=== PATIENT | female | born 2000 | race Caucasian/White ===

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

== ENCOUNTER 2022-02-19 19:01 | Emergency (ER) | payer MEDICAID, SELFPAY ==
[2022-02-19 18:57] VITALS: BP 102/67; PULSE 72; RESP 18; TEMP 36.4; O2SAT 100
--- NOTE | 2022-02-19 19:00 | RT.EKG_ITS ---
APPROVED REPORT Exam: Resting ECG Reason for Exam: syncopy loc Patient Location: E HR:62 bpm ECG Measurements Heart Rate 62 AXIS WI 136 P 23 QRSd 79 QRS 79 QT 415 T 50 QTc 424 Conclusion Sinus rhythm...normal P axis, V-rate 60- 99
--- NOTE | 2022-02-19 19:51 | W.ED.GENAD ---
Discharge Plan Disposition Patient Disposition: HOME Condition: Improving Discharge Details Chief Complaint: AMS/LOC Clinical Impression: Syncope Primary Care Provider: Kelly Ly ED Provider: Oli Bowden Home Meds and New Rx's Prescriptions: No Action cetirizine 10 mg Tablet 10 mg PO DAILY PRN albuterol sulfate [ProAir HFA] 90 mcg/actuation Hfa Aerosol Inhaler 2 puff INHALATION PRN PRN epinephrine 0.3 mg/0.3 mL Syringe 0.3 mg SUBCUT DIRECTED Discharge Instructions Instructions: Syncope (ED) Additional Instructions: Please help with your primary care physician. Please return to the emergency department for any worsening symptoms. Medical Decision Making 21-year-old female presents after syncopal episode in the setting of attempting to vallejo her own septum with some friends this evening, after slightly pricking her septum, she stopped, felt lightheaded and had a syncopal episode witnessed. May have hit her head during syncope. No nausea no vomiting, returned to baseline; has slight frontal headache currently. Hemodynamically stable afebrile nontoxic. Alert and oriented cranial nerves intact 5 out of 5 strength upper and lower extremities, no ataxia, no external signs of trauma. Has complete abrasion to right nasal septum. Hemostatic no foreign body. Likely syncopal episode in the setting of pain related to vasovagal response. Low suspicion for intracranial injury. Low suspicion for primary cardiac etiology. Will obtain fingerstick, urine test, EKG. If normal patient be discharged home with care instructions. 21: 09 patient resting comfortably no acute distress alert and oriented. Tolerating p.o. Negative [id number] test. Relatively low blood glucose on arrival. Tolerated a snack. Feeling much better. Likely combination of vasovagal and relative hypoglycemia resulting in syncope. Strict home care instructions and return precautions given. Friend coming to pick her up. HPI General Date/Time Provider Initiated Documentation: 02/19/22 19:14. HPI Narrative: 21-year-old female presents after syncopal episode while attempting to vallejo her own septum with her friends. Dickens lightheaded after pricking her septum did not complete the piercing. Syncopal episode witnessed, may have hit her head during syncope. Feeling back to normal now. No chest pain or shortness of breath. Slight left frontal headache. No nausea or vomiting. Related Data Home Medications Medication Instructions Recorded Confirmed albuterol sulfate 90 mcg/actuation 2 puff inhalation PRN PRN 09/23/19 09/27/19 aerosol inhaler (ProAir HFA) cetirizine 10 mg tablet 10 mg PO DAILY PRN 09/23/19 09/27/19 epinephrine 0.3 mg/0.3 mL 0.3 mg subcut DIRECTED 09/23/19 09/27/19 injection syringe Allergies Allergy/AdvReac Type Severity Reaction Status Date / Time banana Allergy Severe Anaphylaxsi Verified 09/27/19 07:12 s animal dander Allergy Mild Verified 09/27/19 07:12 apple Allergy Mild Verified 09/27/19 07:12 grass pollen Allergy Mild Verified 09/27/19 07:12 pear Allergy Mild Verified 09/27/19 07:12 General Stated Complaint: AMS/LOC MARYCRUZ: 3 Review of Systems Narrative: Review of Systems Constitutional: negative Eyes: negative ENT: negative Cardiovascular: negative Respiratory: negative Gastrointestinal: negative : negative Musculoskeletal: negative Skin: negative Neurologic: Headache Psych: negative PFSH All Active Problems (Updated 02/19/22 @ 21:10 by Oli Bowden MD) Syncope (Chronic) Environmental allergies (Acute) Deviated nasal septum (Acute) Nasal obstruction (Acute) Nasal turbinate hypertrophy (Acute) Nasal valve stenosis (Acute) Chronic rhinitis (Acute) Medical History (Updated 02/19/22 @ 21:10 by Oli Bowden MD) Allergic rhinitis Asthma Atopic dermatitis Closed fracture of metatarsal bone Pain in right hip Surgical History Hx of toe surgery Social History Smoking/Tobacco Use Status: Never Smoking risk assessment performed?: Yes Alcohol Intake: never Drug use: Never Substance use type: does not use Do you feel safe at home: Yes Do you feel safe in your relationship?: Yes Exam Narrative Exam Narrative: Physical Examination General: alert, awake, cooperative, resting comfortably, no acute distress HEENT: Superficial abrasion to right nasal septum hemostatic;normocephalic, atraumatic; PERRL, EOM intact, conjunctiva normal; no nasal discharge; moist mucous membranes, oral and pharyngeal mucosa normal, tolerating secretions Neck: supple, trachea midline; full ROM Chest: normal to inspection Respiratory: normal respiratory effort, speaking in full sentences, clear to auscultation, no wheezing, rales or rhonchi Cardiac: regular rate, regular rhythm, S1S2 intact, no murmurs rubs or gallops GI: abdomen soft, non-tender, non-distended; no palpable mass or hepatosplenomegaly Skin: no lesions, rashes or trauma appreciated Neuro: AAOx3, normal speech, moving all extremities; cranial nerves II through XII intact, 5 out of 5 strength upper and lower extremities, no ataxia Full range of motion no signs of trauma Extremities: Psych: Appropriate mood and affect Course Vital Signs Vital signs: Vital Signs Temperature 36.4 C L 02/19/22 18:57 Pulse 72 02/19/22 18:57 Respiratory Rate 18 02/19/22 18:57 Blood Pressure 102/67 02/19/22 18:57 Pulse Oximetry 100 02/19/22 18:57 Temperature 36.4 C L 02/19/22 18:57 Temperature Source Tympanic 02/19/22 18:57 Pulse 72 02/19/22 18:57 Respiratory Rate 18 02/19/22 18:57 Respiratory Effort 02/19/22 19:03 Respiratory Depth Normal 02/19/22 19:03 Respiratory Pattern Normal 02/19/22 19:03 Blood Pressure 102/67 02/19/22 18:57 Blood Pressure Position Supine 02/19/22 18:57 Pulse Oximetry 100 02/19/22 18:57 Oxygen Delivery Method Room Air 02/19/22 18:57 Oxygen Flow Rate 0 02/19/22 18:57 Pain Level 4 02/19/22 18:57
== END 2022-02-19 21:41 | disposition home or self-care (01) ==
PROVIDERS: Emergency Provider Emergency Medicine; PCP Nurse Practitioner Family
DX: R55 Syncope and collapse (principal); R51.9 Headache, unspecified
CPT/HCPCS: 36416; 81025; 82962; 93005; 99283; 93010

== ENCOUNTER 2023-02-07 22:38 | Emergency (ER) | payer MEDICAID, SELFPAY ==
[2023-02-07 22:33] VITALS: BP 117/60; PULSE 80; RESP 18; TEMP 37.1; O2SAT 100
[2023-02-07 22:42] VITALS: BP 117/60; PULSE 70; RESP 18; TEMP 37.1; O2SAT 100
--- NOTE | 2023-02-07 22:58 | W.ED.GENAD ---
Discharge Plan Discharge Details Chief Complaint: GenMedical Clinical Impression: Toxic effect of ingested mushrooms Primary Care Provider: Unknown,Unknown ED Provider: Miguel Angel Painter Home Meds and New Rx's Prescriptions: No Action cetirizine 10 mg Tablet 10 mg PO DAILY PRN albuterol sulfate [ProAir HFA] 90 mcg/actuation Hfa Aerosol Inhaler 2 puff INHALATION PRN PRN epinephrine 0.3 mg/0.3 mL Syringe 0.3 mg SUBCUT DIRECTED Medical Decision Making 2299?22-year-old here with adverse effects of psychedelic mushrooms within 2 hours of smoking and ingestion. Patient has nausea, lightheadedness and shortness of breath. Patient believes they consumed too many mushrooms. Patient is hemodynamically stable. Plan to observe and reassess. 2344 --patient reassessed and speech improved. Tolerating oral intake. We will continue to observe. Lab Data Lab results reviewed: Yes I reviewed the patient's lab results. Labs: Laboratory Tests Range/Units 02/07/23 23:07 Urine Opiates Screen (Negative) Negative Urine Methadone Screen (Negative) Negative Ur Barbiturates Screen (Negative) Negative Ur Tricyclics Screen (Negative) Negative Ur Amphetamines Screen (Negative) Negative U Benzodiazepines Scrn (Negative) Negative Urine Cocaine Screen (Negative) Negative Ur THC Screen (Negative) Negative HPI General Mode of arrival: EMS. Date/Time Provider Initiated Documentation: 02/07/23 23:32. Limitations to Documentation: altered mental status. Information obtained by: patient. HPI Narrative: 22-year-old presents with chief complaint of altered mental status. Patient smoked and ingested psychedelic mushrooms with friends around 9 PM and developed nausea, lightheadedness and shortness of breath with altered mental status. Patient thinks it took more than they have used in the past and more than friends. No hallucinations at this time. Patient denies abdominal pain and chest pain. Related Data Home Medications Medication Instructions Recorded Confirmed albuterol sulfate 90 mcg/actuation 2 puff inhalation PRN PRN 09/23/19 09/27/19 aerosol inhaler (ProAir HFA) cetirizine 10 mg tablet 10 mg PO DAILY PRN 09/23/19 09/27/19 epinephrine 0.3 mg/0.3 mL 0.3 mg subcut DIRECTED 09/23/19 09/27/19 injection syringe Allergies Allergy/AdvReac Type Severity Reaction Status Date / Time banana Allergy Severe Anaphylaxsi Verified 09/27/19 07:12 s animal dander Allergy Mild Verified 09/27/19 07:12 apple Allergy Mild Verified 09/27/19 07:12 grass pollen Allergy Mild Verified 09/27/19 07:12 pear Allergy Mild Verified 09/27/19 07:12 General Stated Complaint: GenMedical MARYCRUZ: 3 Review of Systems All systems reviewed & are unremarkable except as noted in HPI and below Respiratory Respiratory: Reports as per HPI Gastrointestinal Gastrointestinal: Reports as per HPI PFS All Active Problems (Updated 02/07/23 @ 23:34 by Miguel Angel Painter MD) Toxic effect of ingested mushrooms (Acute) Environmental allergies (Acute) Deviated nasal septum (Acute) Nasal obstruction (Acute) Nasal turbinate hypertrophy (Acute) Nasal valve stenosis (Acute) Chronic rhinitis (Acute) Medical History Closed fracture of metatarsal bone Pain in right hip Atopic dermatitis Asthma Allergic rhinitis Surgical History Hx of toe surgery Social History Smoking/Tobacco Use Status: Never Smoking risk assessment performed?: Yes Alcohol Intake: never Drug use: Never Substance use type: does not use, marijuana and other Do you feel safe at home: Yes Do you feel safe in your relationship?: Yes Exam Const General: cooperative [facility] Head: normocephalic and atraumatic Mouth: moist mucous membranes Eyes Conjunctivae: normal conjunctivae Pupils: PERRL EOM: EOM intact bilaterally Resp Auscultation: clear to auscultation bilaterally, no rales, no rhonchi and no wheezes Cardio Rate: regular rate and not tachycardic Rhythm: regular rhythm GI Palpation: soft, not firm, no guarding, no masses, not rigid and nontender Skin General skin exam: no rashes or lesions noted Neuro General: patient alert, patient awake and tone normal Speech: abnormal speech other (delayed/broken intermittently ) Extrem General: no edema Psych Appearance: grossly normal Mental Status: mental status grossly normal Course Vital Signs Vital signs: Vital Signs Temperature 37.1 C 02/07/23 22:33 Pulse 80 02/07/23 22:33 Respiratory Rate 18 02/07/23 22:33 Blood Pressure 117/60 02/07/23 22:33 Pulse Oximetry 100 02/07/23 22:33 Temperature 37.1 C 02/07/23 22:42 Temperature Source Oral 02/07/23 22:42 Pulse 70 02/07/23 22:42 Respiratory Rate 18 02/07/23 22:42 Respiratory Effort Normal, Non-Labored 02/07/23 22:42 Respiratory Depth Normal 02/07/23 22:42 Respiratory Pattern Normal 02/07/23 22:42 Blood Pressure 117/60 02/07/23 22:42 Blood Pressure Position Supine 02/07/23 22:33 Pulse Oximetry 100 02/07/23 22:42 Oxygen Delivery Method Room Air 02/07/23 22:42 Oxygen Flow Rate 0 02/07/23 22:33 Pain Level 7 02/07/23 22:33
[2023-02-07 23:31] LABS: *AMPHETAMINES SCREEN URINE Negative (Negative); *BARBITURATES SCREEN URINE Negative (Negative); *BENZODIAZEPINES SCREEN URINE Negative (Negative); Cannabinoids THC Negative (Negative); Cocaine Screen,Urine Negative (Negative); METHADONE URINE SCREEN Negative (Negative); OPIATES URINE SCREEN Negative (Negative)
[2023-02-07 23:32] LABS: Tricyclic Antidepressants Negative (Negative)
[2023-02-07 23:37] VITALS: BP 114/69; PULSE 69; RESP 18; O2SAT 97
--- NOTE | 2023-02-08 00:16 | ED.PROG_ITS ---
Date of service: 02/08/23 Time of Service: 00:18 Medical Decision Making Patient signed out to me pending p.o. trial and reassessment. Please refer to Dr. Painter's note. On reassessment patient looks notably clinically well. All psychedelic effects have resolved. Patient was able to keep down 2 cups of wate r without any difficulty. Tolerated p.o. well. Patient stable for discharge. Did give the option for continued observation for discharge versus discharge and patient and mother both request to go home. I do feel that this is notably reasonable given her current clinical assessment. Discussed red flags for which to return. I have extensively reviewed the treatment plan and discharge instructions with the patient and their family. I have addressed all patient concerns at this time. The patient and family was made aware of what symptoms to monitor for that would warrant a return to the emergency department. Discussed the plan with the patient and family, they demonstrate verbal understanding and agreement with our assessment and plan at this time. The documentation in this chart was dictated using [employer] dictation software. Please excuse any dictation errors. Sign Out Sign Out Data: Sign Out Comment: Patient ingested then smoked psychedelic mushrooms. He developed shortness of breath, nausea, difficulty with speech within 2 hours of ingestion. Patient is being observed for clinical improvement. He is drinking fluid at this time. Plan at signout is to reassess patient for disposition. Last updated by Miguel Angel Painter MD at 02/07/23 23:48 Discharge Plan Disposition Patient Disposition: Home Condition: Good Discharge Details Chief Complaint: GenMedical Clinical Impression: Toxic effect of ingested mushrooms Primary Care Provider: Unknown,Unknown ED Provider: Otoniel Boo Home Meds and New Rx's Prescriptions: No Action cetirizine 10 mg Tablet 10 mg PO DAILY PRN albuterol sulfate [ProAir HFA] 90 mcg/actuation Hfa Aerosol Inhaler 2 puff INHALATION PRN PRN epinephrine 0.3 mg/0.3 mL Syringe 0.3 mg SUBCUT DIRECTED Discharge Instructions Additional Instructions: At this time thankfully the effects from the ingested mushrooms have notably diminished. Please stay well-hydrated, get plenty of rest. Do not hesitate to call me this evening if you have any questions or concerns. [phone] If you notice any worsening of your symptoms, or any new symptoms such as vomiting, diarrhea, fever, chills, shortness of breath, chest pain, numbness, w eakness, or fainting , please return immediately to the emergency department for reevaluation. Please follow up with your primary care provider as soon as possible for reassessment and reevaluation. As always, it was a pleasure participating in your medical care today.
[2023-02-08 00:23] VITALS: PULSE 84; RESP 18; O2SAT 99
== END 2023-02-08 00:25 | disposition home or self-care (01) ==
LOC: ER 02-08 00:33
PROVIDERS: Student in an Organized Health Care Education/Training Program; Emergency Provider Student in an Organized Health Care Education/Training Program
DX: T62.0X1A Toxic effect of ingested mushrooms, accidental (unintentional), initial encounter (principal)
CPT/HCPCS: 00123; 80307; 81025; 82962; 99282; 99283